=== PATIENT | male | born 1990 | race Caucasian/White ===

== ENCOUNTER 2018-04-12 13:56 | Emergency (ER) | payer OTHER ==
[~2018-04-12] VITALS: Ht 172.7 cm; Wt 80.0 kg
[2018-04-12 15:45] VITALS: BP 120/77
== END 2018-04-12 15:48 | disposition home or self-care (01) ==
LOC: ER 14:10
DX: F10.129 Alcohol abuse with intoxication, unspecified (principal); Y90.9 Presence of alcohol in blood, level not specified
CPT/HCPCS: 99283